=== PATIENT | female | born 1975 | race Caucasian/White ===

== ENCOUNTER → 2020-01-17 | Outpatient (CLI) | payer BC ==
[~2020-01-17] MED LIST: ACCUNEB SO1.25 MG/1; ACYCLOVIR 400400 MG PO; BENADRYL25 MG; ESTRACE0.5 MG PO; IBUPROFEN 800800 MG PO; NORCO 10-325 T1 EACH PO; NORCO 5-325 TA1 EACH PO; ROBAXIN500 MG PO
== END ==
LOC: M.LAB 10:09
PROVIDERS: ATTEND Orthopaedic Surgery
DX: Z01.818 Encounter for other preprocedural examination (principal); M75.22 Bicipital tendinitis, left shoulder; Z11.59 Encounter for screening for other viral diseases

== ENCOUNTER → 2020-01-20 | Day surgery (SDC) | payer BC ==
--- NOTE | ~2020-01-20 | OP ---
[facility] [place] [address] [place] [address] OPERATIVE REPORT Name: RUBY LOZADA Room: [facility]#: [id number] Admission: 01/20/20 Attend Phys: rFed Howard, Discharge: Date of : 79 Report #: [id number] THIS REPORT FOR: //name// cc: Sheree Gonsalves Maggie M. DO ~ THIS REPORT FOR: //name// CC: Fred Gonsalves DICTATED BY: Alexandre Krause DO DATE OF SERVICE: 01/20/2020 PREOPERATIVE DIAGNOSIS: Left shoulder biceps tendinitis. POSTOPERATIVE DIAGNOSES: Left shoulder biceps tendinitis with partial articular surface supraspinatus tendon tear less than 10%. PROCEDURE PERFORMED: Left shoulder arthroscopy with biceps tenodesis, debridement of articular surface rotator cuff and subacromial decompression. SURGEON: Fred Howard DO ASSISTANTS: 1. Alexandre Krause DO 2. Alexandre Kowalski DO ANESTHESIA: General with interscalene nerve block. ANTIBIOTICS: 2 grams of Ancef given IV 30 minutes prior to incision. ESTIMATED BLOOD LOSS: 5 mL. DRAINS: None. SPECIMENS: None. COMPLICATIONS: None. CONDITION: Stable to PACU. DISPOSITION: PACU to home. INDICATIONS FOR PROCEDURE: The patient is a pleasant 44-year-old female who has had ongoing left shoulder pain that has been refractory to conservative measures [address] [address] OPERATIVE REPORT Name: RUBY LOZADA Room: [facility].#: [id number] Admission: 01/20/20 Attend Phys: Fred Howard, Discharge: Date of : 79 Report #: [id number] of rest, ice, nonsteroidal anti-inflammatories as well as corticosteroid injection for greater than 3 months and subsequently diagnosed with left shoulder biceps tendinitis on physical exam as well as MRI and subsequently recommended to undergo left shoulder arthroscopy with biceps tenodesis versus tenotomy. Therefore, the risks, benefits, treatment options, alternatives, complications were discussed with the patient. Risks include but are not limited to damage to surrounding neurovascular structures, continued pain, continued bleeding, need for repeat surgery, wound dehiscence, infection, DVT, PE, as well as inherent complications of anesthesia. The patient assumed the risks and wished to proceed with surgery. DESCRIPTION OF PROCEDURE: The patient was in the preoperative holding area where consent was obtained and signed. Left upper extremity was marked and initialed. She was then transferred back to the operative suite and placed supine on the operating table. She was given benefits of general endotracheal anesthetic as well as received interscalene nerve block preoperatively in the preoperative holding area and then all bony prominences were well padded. The patient was placed into the modified beach chair position at approximately 60 degrees of inclination. It has appropriate position. Left upper extremity was then sterilely prepped utilizing Hibiclens scrub followed by alcohol rinse then ChloraPrep x 2 and draped free in normal sterile fashion. Timeout was then had indicating appropriate patient, procedure to be performed, operative site, operative surgery, preoperative antibiotics and all in attendance were in agreement. Next, surgery began with identification of the posterior lateral portal and a skin incision was made with an 11 blade scalpel through skin and subcutaneous tissues and then the glenohumeral joint was then entered with a blunt trocar and cannula. The trocar was then removed and then camera was inserted and the shoulder was then insufflated 50 mmHg with normal saline. Diagnostic arthroscopy was then performed, indicating longitudinal tearing of the biceps tendon as well as ____ superior and anterior superior portions of the labrum; however, labrum remained intact to the glenoid itself and was not freely movable. As well as there was undersurface tearing of the rotator cuff located at the undersurface of the supraspinatus tendon as well as the anterior portion of the infraspinatus tendon with only approximately less than 10% tendon involvement. Articular surface was intact and posterior and inferior labrum were all intact and stable. Next, the anterior portal was then established utilizing the 18-gauge spinal needle and then ____ was then used to enter through the rotator interval anteriorly followed by cannula and then biceps tenodesis was then performed utilizing the Linvatec technique with a FiberLink and 4.75 mm SwiveLock with the appropriate punch followed by implant and appropriate tensioning of the biceps tendon was then punched. Biceps tendon was cut with arthroscopic scissors prior to placement of the final implant and tensioning of the biceps tendon within this. Radiofrequency ablator was then utilized to bring the proximal and distal stumps to the biceps tendon itself. Next, attention was then directed to the subacromial space where there was noted to be significant hypertrophic subacromial bursa that was debrided and ____ [address] [address] OPERATIVE REPORT Name: RUBY LOZADA Room: [facility]#: [id number] Admission: 01/20/20 Attend Phys: Fred Howard, Discharge: Date of : 79 Report #: [id number] arthroscopic shaver as well as a radiofrequency ablator. The entirety of the rotator cuff was then able to be visualized superiorly and determined to be intact with no areas of significant weakness demonstrating partial thickness tearing. As well as there were no significant subacromial spurs or distal clavicular spurs. Therefore, arthroscopic instruments were then subsequently removed. Fluid was then drained from the shoulder. ____ was then closed utilizing 3-0 nylon in a simple interrupted fashion followed by dressings of Xeroform, 4 x 4's, ABD, Medipore tape and then sling. The patient was then transferred back to PACU in normal stable condition. Sponge and needle counts were correct x 2. Dr. Howard was present for all critical aspects of the case. By: [id number] Howard, DO /nt
== END | disposition home or self-care (01) ==
LOC: M.SUR 08:06
PROVIDERS: ATTEND Orthopaedic Surgery
DX: M75.22 Bicipital tendinitis, left shoulder (principal); M19.012 Primary osteoarthritis, left shoulder; Z79.899 Other long term (current) drug therapy; Z98.890 Other specified postprocedural states

== ENCOUNTER → 2020-07-13 | Outpatient (CLI) | payer BC ==
[2020-07-13 16:05] LABS: ABSOLUTE EOSINOPHILS 0.1 thou/uL (0.0-0.7); ABSOLUTE LYMPHOCYTES 2.3 thou/uL (0.8-5.3); ABSOLUTE MONOCYTES 0.4 thou/uL (0.0-1.2); ABSOLUTE NEUTROPHILS 4.6 thou/uL (1.6-8.1); BASOPHILS 0.6 %; EOSINOPHILS 1.3 %; HEMATOCRIT 42.4 % (37.0-47.0); HEMOGLOBIN 14.3 gm/dL (12.0-15.0); LYMPHOCYTES 30.6 %; MCH 29.3 pg (26.0-34.0); MCHC 33.8 g/dL (28.0-37.0); MCV 86.7 fL (80.0-100.0); MONOCYTES 5.7 %; MPV 9.3 fl. (7.2-11.1); NUCLEATED RBCS 0 /100WBC; PLATELET COUNT* 248 thou/uL (150-400); POLYS 61.8 %; RBC 4.89 mil/uL (4.20-5.00); RDW-CV 12.5 % (10.5-14.5); WBC 7.4 thou/uL (4.0-11.0)
[2020-07-13 16:09] LABS: CALCIUM 9.6 mg/dL (8.5-10.1); CREATININE 0.6 mg/dL (0.6-1.3)
[2020-07-13 16:37] LABS: % SATURATION 17 % (20-39); IRON 67 ug/dL (50-175)
== END ==
LOC: M.CT 15:00
PROVIDERS: ATTEND Family Medicine
DX: K57.30 Diverticulosis of large intestine without perforation or abscess without bleeding (principal); R19.00 Intra-abdominal and pelvic swelling, mass and lump, unspecified site; D58.2 Other hemoglobinopathies; J84.10 Pulmonary fibrosis, unspecified

== ENCOUNTER → 2021-02-21 | Outpatient (CLI) | payer BC | LOC: M.ULTRA 09:00 | PROVIDERS: ATTEND Family Medicine | DX: R22.0 Localized swelling, mass and lump, head (principal) ==